=== PATIENT | female | born 1965 | race Caucasian/White ===

== ENCOUNTER 2017-04-06 06:44 | Inpatient (IN) | payer OTHER ==
[~2017-04-06 06:44] MED LIST: Acetaminophen 500 MG Tab PO ONE; Celecoxib 200 MG Cap PO ONE; Dextrose 5%-Lactated Ringers 1,000 ML IV SCH; Gabapentin 100 MG Cap PO ONE; Gabapentin 300 MG Cap PO ONE; Scopolamine 1.5 MG Transdermal Patch TOP SCH; cefOXitin 2 GM Vial ONE
[2017-04-06] MEDS ORDERED: fentaNYL 250 MCG/5 ML SDV ONE (06:58)
[2017-04-06] MEDS ORDERED: Ondansetron 4 MG/2 ML SDV ONE (06:58)
[2017-04-06] MEDS ORDERED: Neostigmine Methylsulfate 1 MG/ML 5 ML Syringe ONE (06:58)
[2017-04-06] MEDS ORDERED: Midazolam 1 MG/ML 2 ML SDV ONE (06:58)
[2017-04-06] MEDS ORDERED: Rocuronium 50 MG/5 ML Vial ONE (06:58)
[2017-04-06] MEDS ORDERED: Dexamethasone 4 MG/ML SDV ONE (06:58)
[2017-04-06] MEDS ORDERED: Succinylcholine/Normal Saline 200 MG/10 ML Syringe ONE (06:58)
[2017-04-06] MEDS ORDERED: Propofol 200 MG/20 ML SDV ONE (06:58)
[2017-04-06] MEDS ORDERED: cefOXitin 2 GM in Sodium Chloride 0.9% 50 ML IV ONE (07:00)
[2017-04-06] MEDS ORDERED: Albuterol/Ipratropium 3.0-0.5 MG/3 ML Neb Soln NEB ONE ×2 (07:00→07:15)
[2017-04-06] MEDS ORDERED: Gabapentin 300 MG Cap PO ONE (07:15)
[2017-04-06] MEDS ORDERED: Celecoxib 200 MG Cap PO ONE (07:15)
[2017-04-06] MEDS ORDERED: Acetaminophen 500 MG Tab PO ONE (07:15)
[2017-04-06] MEDS ORDERED: Lidocaine 2% 100 MG/5 ML Syringe IVPUSH ONE (07:30)
[2017-04-06] MEDS ORDERED: Ketamine 500 MG/5 ML MDV IV ONE (07:30)
[2017-04-06] MEDS ORDERED: Ropivacaine 55 ML, Dexamethasone 8 MG, EPINEPHrine 0.4 MG, Sodium Chloride 0.9% 22.6 ML NERVRT ONE ×4 (07:30)
[2017-04-06] MEDS ORDERED: fentaNYL 100 MCG/2 ML SDV IVPUSH ONE (10:50)
[2017-04-06] MEDS ORDERED: hydrOXYzine HCl 50 MG/ML SDV IM ONE (11:05)
[2017-04-06] MEDS ORDERED: diphenhydrAMINE 50 MG/ML SDV IVPUSH PRN (12:14)
[2017-04-06] MEDS ORDERED: Ondansetron 4 MG/2 ML SDV IVPUSH PRN (12:14)
[2017-04-06] MEDS ORDERED: hydrOXYzine HCl 50 MG/ML SDV IM PRN (12:14)
[2017-04-06] MEDS ORDERED: Labetalol 20 MG/4 ML Syringe IVPUSH PRN (12:14)
[2017-04-06] MEDS ORDERED: SCOPOLAMINE PATCH ASK TOP SCH (12:14)
[2017-04-06] MEDS ORDERED: Metoclopramide 10 MG/2 ML SDV IVPUSH PRN (12:14)
[2017-04-06] MEDS ORDERED: Albuterol/Ipratropium 3.0-0.5 MG/3 ML Neb Soln INH PRN (12:19)
[2017-04-06] MEDS ORDERED: HYDROmorphone 1 MG/ML Syringe IVPUSH PRN (12:36)
[2017-04-06] MEDS: Lidocaine 0.4%/D5W 2 GM/500 ML BAG IV SCH (12:49)
[2017-04-06] MEDS: Dextrose 5%-Lactated Ringers 1,000 ML IV SCH (12:49)
[2017-04-06] MEDS ORDERED: Pantoprazole 40 MG Vial IVPUSH SCH (14:00)
[2017-04-06] MEDS: Gabapentin 250 MG/5 ML Solution ML 470 ML Bottle PO SCH ×2 (14:30→20:32)
[2017-04-06] MEDS: Acetaminophen Soln 650 MG/20.3 ML UD Cup PO SCH ×2 (14:30→20:32)
[2017-04-06] MEDS: Albuterol/Ipratropium 3.0-0.5 MG/3 ML Neb Soln INH SCH ×2 (14:38→20:32)
[2017-04-06] MEDS: cefOXitin 2 GM in Sodium Chloride 0.9% 50 ML IV SCH ×2 (15:57→21:50)
[2017-04-06] MEDS ORDERED: MVI, Adult with Vitamin K 10 ML, Thiamine 200 MG, Chromium/Copper/Mang/Selen/Zn 1 ML in... IV SCH ×4 (16:00)
[2017-04-06] MEDS: Heparin Sodium 5,000 Units/ML Vial SUBCUT SCH (17:57)
[2017-04-07] MEDS: Dextrose 5%-Lactated Ringers 1,000 ML IV SCH ×3 (00:10→10:57)
[2017-04-07] MEDS: Lidocaine 0.4%/D5W 2 GM/500 ML BAG IV SCH (01:37)
[2017-04-07] MEDS: Acetaminophen Soln 650 MG/20.3 ML UD Cup PO SCH ×4 (02:00→20:19)
[2017-04-07] MEDS: cefOXitin 2 GM in Sodium Chloride 0.9% 50 ML IV SCH (03:30)
[2017-04-07] MEDS ORDERED: Iohexol 647 MG/ML 50 ML SDV PO SCH (03:45)
[2017-04-07] MEDS: Heparin Sodium 5,000 Units/ML Vial SUBCUT SCH (05:34)
[2017-04-07] MEDS: Celecoxib 200 MG Cap PO SCH (07:28)
[2017-04-07] MEDS: Albuterol/Ipratropium 3.0-0.5 MG/3 ML Neb Soln INH SCH ×4 (07:43→20:19)
[2017-04-07] MEDS ORDERED: Dextrose 5%-Lactated Ringers 1,000 ML IV SCH (08:45)
[2017-04-07] MEDS: Gabapentin 250 MG/5 ML Solution ML 470 ML Bottle PO SCH ×3 (09:45→20:21)
[2017-04-07] MEDS: Propranolol 40 MG Tab PO SCH ×2 (09:46→20:20)
[2017-04-07] MEDS: Losartan 50 MG Tab PO SCH (09:46)
[2017-04-07] MEDS: Venlafaxine 75 MG Cap.ER PO SCH ×2 (09:46→20:20)
[2017-04-07] MEDS: busPIRone 10 MG Tab PO SCH ×3 (09:46→20:19)
[2017-04-07] MEDS: SCOPOLAMINE PATCH CHECK TOP SCH (09:49)
[2017-04-07] MEDS ORDERED: Ondansetron 4 MG Tab.DIS PO PRN (10:15)
[2017-04-07] MEDS ORDERED: Coagulation Factor VIIa Recombinant (per MCG) 2 MG Vial IVPUSH ONE (11:30)
[2017-04-07] MEDS ORDERED: MVI, Adult with Vitamin K 10 ML, Thiamine 200 MG, Chromium/Copper/Mang/Selen/Zn 1 ML in... IV SCH ×8 (16:00)
--- NOTE | 2017-04-07 16:46 | PN ---
DATE OF SERVICE: 04/07/2017 The patient has been clinically stable overnight. She does run a baseline tachycardia of around 110 and gets up to around 130 or 140 with activity, but is otherwise hemodynamically stable. Her upper GI x-ray looks good and we will start step-2 diet without solids for today. Back down the IV rate. Restart some of her oral medications. The pain control appears to be quite good with the nonnarcotic regimen at this point. David Ventura MD /[id number]
[2017-04-08] MEDS: Acetaminophen Soln 650 MG/20.3 ML UD Cup PO SCH ×4 (02:01→20:00)
[2017-04-08] MEDS: Dextrose 5%-Lactated Ringers 1,000 ML IV SCH (04:29)
[2017-04-08] MEDS: Albuterol/Ipratropium 3.0-0.5 MG/3 ML Neb Soln INH SCH ×4 (07:14→20:01)
[2017-04-08] MEDS: Celecoxib 200 MG Cap PO SCH (07:47)
[2017-04-08] MEDS ORDERED: Furosemide 20 MG/2 ML VIAL IVPUSH ONE (08:00)
[2017-04-08] MEDS: busPIRone 10 MG Tab PO SCH ×3 (08:23→20:01)
[2017-04-08] MEDS: Losartan 50 MG Tab PO SCH (08:23)
[2017-04-08] MEDS: Venlafaxine 75 MG Cap.ER PO SCH ×2 (08:24→20:01)
[2017-04-08] MEDS: Propranolol 40 MG Tab PO SCH ×2 (08:24→20:01)
[2017-04-08] MEDS: Gabapentin 250 MG/5 ML Solution ML 470 ML Bottle PO SCH ×3 (08:31→20:01)
[2017-04-08] MEDS ORDERED: Cyanocobalamin (Vitamin B12) 1,000 MCG/ML SDV IM ONE (09:00)
--- NOTE | 2017-04-08 09:25 | CR ---
Status post Zion-en-Y. Surgical drains. No gross evidence for leakage.
--- NOTE | 2017-04-08 09:28 | PN ---
DATE OF SERVICE: 04/08/2017 SUBJECTIVE: Vera is postoperative day #2. She had some rectal bleeding yesterday with a nose bleed. Her heparin was stopped. She was given two doses of activated factor VII. She is doing well. This morning, there has been no further bleeding. Her blood pressure has been slightly elevated at 158/92. She is retaining fluid and has generalized edema. REVIEW OF SYSTEMS: Remainder of review of systems negative for any pertinent positives and negatives. OBJECTIVE: GENERAL: Vera Pérez is a 51-year-old female. She is alert and orientated. VITAL SIGNS: TPR is 99.5, 88, 16. Blood pressure is 158/92 HEENT: Negative. NECK: Supple. HEART: Regular rate and rhythm. LUNGS: Clear. ABDOMEN: Dressings dry and intact. SADIE drain has put out 130 mL of a pink serosanguineous drainage. EXTREMITIES: Without peripheral edema. SCDs are on. ASSESSMENT: Laparoscopic Zion-en-Y gastric bypass surgery, liver biopsy, excision of peritoneal nodule overlying the sigmoid colon. PREOPERATIVE DIAGNOSES: 1. Morbid obesity. 2. Marked hepatomegaly. 3. Peritoneal nodule overlying the sigmoid colon. Date of surgery 04/06/2017. PLAN: 1. Lasix 20 mg IV. 2. Saline lock IV. 3. CBC and CMP in a.m. 4. Dressing off, february shower. 5. Ambulation six times daily. 6. We will have dietary consult. 7. Plan discharge in a.m. Elise Rubin PA-C /[id number]
[2017-04-08] MEDS: SCOPOLAMINE PATCH CHECK TOP SCH (11:26)
[2017-04-09] MEDS: Acetaminophen Soln 650 MG/20.3 ML UD Cup PO SCH ×2 (02:00→07:47)
[2017-04-09] MEDS: Celecoxib 200 MG Cap PO SCH (07:47)
[2017-04-09] MEDS: Albuterol/Ipratropium 3.0-0.5 MG/3 ML Neb Soln INH SCH ×2 (07:50→10:51)
[2017-04-09] MEDS: Losartan 50 MG Tab PO SCH (08:00)
[2017-04-09] MEDS: Propranolol 40 MG Tab PO SCH (08:01)
[2017-04-09] MEDS: busPIRone 10 MG Tab PO SCH (08:01)
[2017-04-09] MEDS: Venlafaxine 75 MG Cap.ER PO SCH (08:01)
[2017-04-09] MEDS: Gabapentin 250 MG/5 ML Solution ML 470 ML Bottle PO SCH (08:08)
--- NOTE | 2017-04-09 11:43 | OR ---
DATE OF PROCEDURE: 04/06/2017 PREOPERATIVE DIAGNOSIS: Morbid obesity. POSTOPERATIVE DIAGNOSES: 1. Morbid obesity. 2. Quite marked hepatomegaly. 3. Peritoneal nodule overlying the sigmoid colon. OPERATIVE PROCEDURES: 1. Laparoscopic Zion-en-Y gastric bypass with long-limb gastroenterostomy (97084). 2. Jorge-Cut needle liver biopsy (34243). 3. Excision of peritoneal nodule overlying sigmoid colon (73560). ANESTHESIA: General. PHARMACY ORDER ENTRY TECHNICIAN: Elise Rubin PA-C. INDICATIONS FOR PROCEDURE: This is a 51-year-old female, presenting with longstanding morbid obesity and increasingly significant comorbidities. After preoperative evaluation and discussion, she wished to proceed with a gastric bypass procedure. Potential risks of the procedure including bleeding, infection, leaks from various GI tract closures, problems with bowel obstruction over time, as well as possibility of cardiopulmonary or septic or hemorrhagic complications leading to were discussed, and the patient wishes to proceed. DETAILS OF PROCEDURE: The patient was taken to the Operating Room and placed in a supine position. After general endotracheal anesthesia was induced, she was converted to a lithotomy position, and a gastrointestinal balloon catheter was placed. The abdomen was prepped and draped. Using continuous ultrasound guidance, bilateral transversus abdominis plane blocks were placed using the standard regimen. 15 cm inferior and 5 cm left of the xiphoid process, a transverse incision was made, and the peritoneal cavity entered under direct vision with an Optiview trocar and inflated to 15 mmHg pressure of CO2. Laparoscope was then reinserted. No underlying trocar insertion site injuries were seen. Following this, 5 additional trocars were placed across the upper and mid abdomen, and general exploration was undertaken. The most striking finding was that of a quite profound hepatomegaly, with the liver being probably 3 to 4 times of normal size. This was grossly fatty infiltrated. There was no evident portal hypertension within the mesenteric venous system and no significant splenomegaly, and the liver itself did not show signs of nodularity. Two biopsies were obtained from left lobe of liver using Jorge-Cut needle biopsy device and sent for histologic evaluation. The biopsy sites were controlled with electrocautery. At this point, the omentum was inspected. This was likewise quite thick, quite a bit thicker than one would typically see with a female with her BMI, all indicative that she likely probably has quite a bit in the way of underlying metabolic syndrome. There were some adhesions of the sigmoid colon. The patient was noted to have a necrotic nodule overlying the mid-sigmoid colon. This was excised and sent for histologic evaluation. Most likely, this is an area of necrotic appendix epiploica, but this was excised using Harmonic scalpel to assure that this was a benign diagnosis. The omentum then eventually lied at the level of the transverse colon where the colon was then retracted superiorly allowing the identification of the ligament of Treitz. Small bowel was then traced out 200 cm distal to that point, and was divided transversely with the same stapler. The small bowel was then traced out an additional 200 cm, where the side-to- side enteroenterostomy was accomplished with internal firing of the Endo-ALEX 60-mm stapler. Common opening was then closed transversely with the same stapler, and the angles of the anastomosis and mesenteric defect was approximated with 0 Ethibond stitch. Because of the patient's appearance of liver and omentum, a fairly aggressive limb length was used in both the biliopancreatic and Zion limbs. The liver was then retracted anteriorly, and the gastrointestinal balloon catheter was inflated to 15 mL, and pulled up snugly against the EG junction. The patient was noted not to have any significant hiatal hernia. The gastric wall of the [place] balloon was then marked with electrocautery, and balloon catheter was deflated and pulled up from the esophagus. The lesser omentum was then divided adjacent to the gastric cardia with the harmonic scalpel allowing dissection behind the stomach at that level. Pouch formation was then accomplished with 3 firings of the ALEX stapler beginning at the level of the cauterized kady at the gastric cardia, and extending upward toward the angle of His. Upon completion of the pouch formation, both staple lines were intact. The anvil of a 21-mm EEA stapler was then attached to [place] Sump type tube. The latter was brought down through the mouth and taken out through a small opening in the gastric pouch, allowing the anvil likewise to be pulled down to within the gastric pouch. The divided end of Zion limb was then opened, and the main body of EEA stapler was passed several centimeters into the Zion limb, brought up the anvil and united with it, thus creating the gastrojejunostomy. Upon removal of the stapler, double donuts of mucosa were noted within it. The small bowel was closed off with a vascular staple line. Gastrojejunostomy was then reinforced with some 3-0 Vicryl seromuscular stitch along with a fibrin sealant. A leak test was accomplished with injection of 120 mL of air in the gastric pouch while submerged with cefoxitin-containing saline solution. No leaks were identified and a single Barrie-Beal drain was then taken out through the left lateral trocar site and placed adjacent to gastrojejunostomy, and then from there up into the splenic fossa. With no further problems noted, trocars were removed and the peritoneal cavity was deflated. Incision was closed with 4-0 Vicryl skin stitch. This was also used to affix the drains, and dressing was applied. The patient was taken to the Recovery Room in satisfactory condition. Physician lab assistant, Elise Rubin, played an essential role in assisting in this case, helping to retract structures as needed, help positioning the patient, as well as suturing and cutting sutures when indicated. Her presence improved patient safety and decreased the operative time. David Ventura MD /[id number]
--- NOTE | 2017-04-09 11:55 | DISCH ---
ADMISSION DIAGNOSES: Morbid obesity, insomnia, hypokalemia, essential hypertension, and recurrent major depression disorder. DISCHARGE DIAGNOSES: 1. Laparoscopic Zion-en-Y gastric bypass surgery, liver biopsy, excision of peritoneal nodule, and nodule overlying the sigmoid colon for morbid obesity, hepatomegaly, and peritoneal nodule. Date of surgery was 04/06/2017. 2. Postoperative bleeding secondary to heparin. HISTORY: Vera Pérez is a 51-year-old female with longstanding history of morbid obesity and increasing comorbidities. After preoperative evaluation and discussion of possible risks and possible complications, she wished to proceed with surgical procedure. HOSPITAL COURSE: Vera had her surgery on 04/06/2017. She had no operative complications. On postop day #1, she did have some rectal bleeding and a nosebleed. She was given 2 doses of activated factor VII, and she had no further bleeding. Blood pressure was slightly elevated on postop day #2. She was given Lasix for retaining fluid and generalized edema. Her blood pressure did come down. Her activity was good. She received adequate dietary instructions and a B12 1000 mcg IM injection. On postop day #3, Vera was able to be discharged to home. PHYSICAL EXAMINATION: GENERAL: Vera Pérez is a 51-year-old female. VITAL SIGNS: Height 5 feet 3 inches. Weight is 238 pounds. TPR 98.4, 76, 18, and blood pressure 149/88. HEENT: Negative. NECK: Supple. HEART: Regular rate and rhythm. LUNGS: Clear. ABDOMEN: Incisions look good. 4x4s over SADIE drain site. Abdominal binder is on. EXTREMITIES: Without peripheral edema. DISPOSITION: Discharged to home. CONDITION: Stable and improving. FOLLOWUP APPOINTMENT: With Elise Rubin PA-C, on 04/14/2017 at 11 a.m. at [facility]. HOME MEDICATIONS: 1. Tylenol 650 mg per 20.3 mL cups every 6 hours. 2. Celebrex 200 mg p.o. daily, #14. 3. Zofran ODT 4 mg q.4 hours p.r.n. nausea, #30. 4. She is to resume her home medication of vitamin B12 1000 mcg sublingual daily, Neurontin 300 mg oral at bedtime, hydrochlorothiazide 25 mg oral daily, Cozaar 100 mg oral daily, multivitamin chewable 1 twice daily, Inderal 40 mg oral twice daily, venlafaxine 75 mg oral twice daily, BuSpar 10 mg oral 3 times daily. 5. Stop taking calcium citrate and thiamine until notified at her clinic appointment. DISCHARGE DIET: Drink 8 to 10 glasses of water a day. Step-2 gastric bypass diet with no cereal for 2 weeks. ACTIVITY: After discharge, no lifting greater than 10 pounds for 2 weeks. Other activity, walk 6 to 8 times daily, distance and time as tolerated. Driving, do not drive while on pain medication. Shower/bathing, may shower. Notify provider of fever, increased pain, nausea, or vomiting. Wound incision care, keep site clean and dry. Wear abdominal binder for 2 weeks and as tolerated. SPECIAL INSTRUCTIONS: Use incentive spirometer 10 times every hour while awake.
[2017-04-09 12:20] VITALS: BP 153/91
[2017-04-09] MEDS: SCOPOLAMINE PATCH CHECK TOP SCH (12:36)
== END 2017-04-09 14:00 | disposition home or self-care (01) | DRG 620 ==
LOC: JP.SDS 06:44 → JP.MS 06:44 → JP.2SS 10:40 → EDSTATUS 13:00 → JP.2SS 04-09 08:32
PROVIDERS: ADMIT Surgery; ATTEND Surgery
PROC: 0FB24ZX Excision of Left Lobe Liver, Percutaneous Endoscopic Approach, Diagnostic (ICD-10-PCS; principal; 2017-04-06)
PROC: 0D164ZA Bypass Stomach to Jejunum, Percutaneous Endoscopic Approach (ICD-10-PCS; 2017-04-06)
PROC: 0DBN4ZX Excision of Sigmoid Colon, Percutaneous Endoscopic Approach, Diagnostic (ICD-10-PCS; 2017-04-06)
DX: E66.01 Morbid (severe) obesity due to excess calories (principal); K62.5 Hemorrhage of anus and rectum; R60.1 Generalized edema; R04.0 Epistaxis; F33.42 Major depressive disorder, recurrent, in full remission; G47.00 Insomnia, unspecified; E88.81 Metabolic syndrome and other insulin resistance; R16.0 Hepatomegaly, not elsewhere classified; R22.9 Localized swelling, mass and lump, unspecified; K63.89 Other specified diseases of intestine; E87.6 Hypokalemia; I10 Essential (primary) hypertension; Z68.41 Body mass index [BMI] 40.0-44.9, adult; Z80.3 Family history of malignant neoplasm of breast; Z90.49 Acquired absence of other specified parts of digestive tract; Z98.51 Tubal ligation status; Z87.891 Personal history of nicotine dependence
CPT/HCPCS: 36415; 74240; 74240-26; 80048; 80053; 83735; 84100; 85027; 86850; 86900; 86901; 88305; 88307; 88313; 88342; 94640; 94640-76; 94762; A9270-GY; C9113; J0171; J0694; J1100; J1170; J1644; J1940; J2001; J2250; J2405; J2704; J2795; J3010; J3410; J3411; J3420; J7030; J7040; J7042; J7050; J7189; J7620; Q9967

== ENCOUNTER 2017-08-17 06:54 | Day surgery (SDC) | payer OTHER ==
[2017-08-17] MEDS ORDERED: Midazolam 1 MG/ML 2 ML SDV ONE (07:03)
[2017-08-17] MEDS ORDERED: fentaNYL 100 MCG/2 ML SDV ONE (07:03)
[2017-08-17] MEDS ORDERED: Propofol 200 MG/20 ML SDV ONE (07:03)
[2017-08-17] MEDS ORDERED: Lactated Ringers 1,000 ML IV SCH (08:00)
[2017-08-17] MEDS ORDERED: Cyanocobalamin (Vitamin B12) 1,000 MCG/ML SDV IM ONE (08:15)
[2017-08-17] MEDS ORDERED: Glycopyrrolate 0.2 MG/ML 2 ML SDV IVPUSH ONE (08:30)
[2017-08-17] MEDS ORDERED: MVI, Adult with Vitamin K 10 ML, Thiamine 200 MG, Chromium/Copper/Mang/Selen/Zn 1 ML in... IV ONE ×4 (09:30)
[2017-08-17 10:25] VITALS: BP 113/93
--- NOTE | 2017-08-23 12:02 | OR ---
DATE OF PROCEDURE: 08/17/2017 PREOPERATIVE DIAGNOSIS: Probable stricture, gastrojejunostomy. POSTOPERATIVE DIAGNOSIS: Mild stricture, gastrojejunostomy. OPERATIVE PROCEDURE: Upper GI endoscopy with dilation of gastrojejunostomy (85012). ANESTHESIA: IV sedation. INDICATION FOR PROCEDURE: This is a 52-year-old status post Zion-en-Y gastric bypass on 04/06/2017 presenting with symptoms suggestive of stricturing at her gastrojejunostomy. Plan is to proceed with upper GI endoscopy with dilation as indicated. Potential risks including bleeding and perforation were discussed, and the patient wishes to proceed. DETAILS OF PROCEDURE: The patient was taken to the operating room and placed in a left lateral decubitus position. IV sedation was administered, after which the upper GI endoscope was passed orally through the length of the esophagus and into the gastric pouch. The patient was noted to have no retained food or fluid. The patient had a mild stricture of the gastrojejunostomy with the 1 cm scope not quite being able to pass through the anastomosis. Bard gastrointestinal catheter was then centered across the anastomosis and inflated to 45-[place]vian size. This was held in position for 1 minute, after which the balloon catheter was deflated and withdrawn. The scope was easily then be passed through the anastomosis. No complications were noted and the scope was withdrawn. The patient was taken to the recovery room in satisfactory condition. David Ventura MD /[id number]
== END 2017-08-17 11:03 | disposition home or self-care (01) ==
LOC: JP.SDS 06:54
PROVIDERS: ATTEND Surgery
DX: K95.89 Other complications of other bariatric procedure (principal); I10 Essential (primary) hypertension; K21.9 Gastro-esophageal reflux disease without esophagitis; E66.9 Obesity, unspecified; Z98.51 Tubal ligation status; Z88.1 Allergy status to other antibiotic agents; Z88.8 Allergy status to other drugs, medicaments and biological substances; Z90.49 Acquired absence of other specified parts of digestive tract; Z68.30 Body mass index [BMI] 30.0-30.9, adult; F41.9 Anxiety disorder, unspecified; F32.9 Major depressive disorder, single episode, unspecified
CPT/HCPCS: 43245; J2250; J2704; J3010; J3411; J3420; J7120; J3490